=== PATIENT | female | born 1985 | race Caucasian/White ===

== ENCOUNTER 2017-05-08 07:17 | Emergency (ER) | payer BC, OTHER ==
[2017-05-08] MEDS ORDERED: XYLOCAINE 1% HCL 20 ML MDV IJ ONE (07:40)
[2017-05-08] MEDS ORDERED: BACIGUENT PACKET TP ONE (07:40)
--- NOTE | 2017-05-08 07:45 | ERPHSYRPT ---
- History of Present Illness Time Seen by Provider: 05/08/17 07:32 Source: patient Exam Limitations: no limitations Patient Subjective Stated Complaint: right perineal abscess, no drainage, swelling and tender to palpation Triage Nursing Assessment: redness, swelling to right perineal area, no obvious drainage on assessment Physician History: 32 year old white female arrives with complaint of possible abscess right groin for 1 week is on antibiotics placed by her fmd for 5 days , no fever no drainage has had area drained by Dr Sanchez in the past. Timing/Duration: today Severity: mild Associated Symptoms: No nausea, No vomiting, No abdominal pain, No shortness of breath, No heartburn, No diaphoresis, No cough, No chills, No chest pain, No fever, No headaches, No loss of appetite, No malaise, No rash, No syncope, No seizure, No weakness Allergies/Adverse Reactions: No Known Drug Allergies Allergy (Unverified 10/26/14 15:20) Home Medications: Clindamycin Phosphate [Clindamycin 1% Gel] 1 applic TOP BID PRN 05/08/17 [ History] Sulfamethoxazole/Trimethoprim [Bactrim Ds Tablet] 1 tab PO BID 05/08/17 [History ] Hx Tetanus, Diphtheria Vaccination/Date Given: Yes Hx Influenza Vaccination/Date Given: No Hx Pneumococcal Vaccination/Date Given: No Immunizations Up to Date: Yes - Review of Systems Constitutional: No Fever, No Chills Eyes: No Symptoms Ears, Nose, & Throat: No Symptoms Respiratory: No Cough, No Dyspnea Cardiac: No Chest Pain, No Edema, No Syncope Abdominal/Gastrointestinal: No Abdominal Pain, No Nausea, No Vomiting, No Diarrhea Genitourinary Symptoms: No Dysuria Musculoskeletal: No Back Pain, No Neck Pain Skin: Other (possible abscess right groin) Neurological: No Dizziness, No Focal Weakness, No Sensory Changes Psychological: No Symptoms Endocrine: No Symptoms Hematologic/Lymphatic: No Symptoms, Anemia, Blood Clots, Easy Bleeding, Gum Bleeding, Easy Bruising, Adenopathy, Other - Past Medical History Pertinent Past Medical History: No Neurological History: No Pertinent History ENT History: No Pertinent History Cardiac History: No Pertinent History Respiratory History: No Pertinent History Endocrine Medical History: No Pertinent History Musculoskeletal History: No Pertinent History GI Medical History: No Pertinent History History: No Pertinent History Psycho-Social History: No Pertinent History Female Reproductive Disorders: No Pertinent History Other Medical History: right areaola has scally rash with discharge - Past Surgical History Past Surgical History: Yes Neuro Surgical History: No Pertinent History Cardiac: No Pertinent History Respiratory: No Pertinent History Gastrointestinal: No Pertinent History Genitourinary: No Pertinent History Musculoskeletal: Orthopedic Surgery Female Surgical History: Section, Tubal Ligation Other Surgical History: R shoulder surgery, cyst removal to right perineal area - Social History Smoking Status: Current some day smoker How long have you smoked: 10 Exposure to second hand smoke: No Drug Use: none Patient Lives Alone: No - Female History Hx Last Menstrual Period: 05/01/2017 Hx Now: No - Nursing Vital Signs Nursing Vital Signs: Initial Vital Signs Temperature 98.0 F 05/08/17 07:23 Pulse Rate 82 05/08/17 07:23 Respiratory Rate 18 05/08/17 07:23 Blood Pressure 130/67 05/08/17 07:23 O2 Sat by Pulse Oximetry 100 05/08/17 07:23 Pain Scale Pain Intensity 8 - Physical Exam General Appearance: no apparent distress, alert Eye Exam: PERRL/EOMI, eyes nml inspection Ears, Nose, Throat Exam: normal ENT inspection, TMs normal, pharynx normal, moist mucous membranes Neck Exam: normal inspection, non-tender, supple, full range of motion Respiratory Exam: normal breath sounds, lungs clear, No respiratory distress Cardiovascular Exam: regular rate/rhythm, normal heart sounds, normal peripheral pulses Gastrointestinal/Abdomen Exam: soft Back Exam: normal inspection, normal range of motion, No CVA tenderness, No vertebral tenderness Extremity Exam: normal inspection, normal range of motion, pelvis stable Neurologic Exam: alert, oriented x 3, cooperative, normal mood/affect, nml cerebellar function, nml station & gait, sensation nml, No motor deficits Skin Exam: other (3x1 cm raised area right groin) SpO2 Interpretation: normal SpO2: 100 Oxygen Delivery: Room Air - Course Nursing assessment & vital signs reviewed: Yes Ordered Tests: Active Orders 24 hr Category Date Time Status Wound Care STAT Care 05/08/17 07:40 Active CULTURE,WOUND Stat Lab 05/08/17 07:39 Ordered Medication Summary Discontinued Medications Generic Name Dose Route Start Last Admin Trade Name Freq PRN Reason Stop Dose Admin Bacitracin 0.9 gm 05/08/17 07:40 05/08/17 07:57 Baciguent Packet TP 05/08/17 07:41 0.9 gm STAT ONE Administration Bacitracin Confirm 05/08/17 07:48 Baciguent Packet Administered 05/08/17 07:49 Dose 2 gm .ROUTE .STK-MED ONE Lidocaine HCl 5 ml 05/08/17 07:40 05/08/17 07:58 Xylocaine 1% Hcl 20 Ml Mdv IJ 05/08/17 07:41 10 ml STAT ONE Administration Lidocaine HCl Confirm 05/08/17 07:48 Xylocaine 1% Hcl 20 Ml Mdv Administered 05/08/17 07:49 Dose 10 ml .ROUTE .STK-MED ONE - Progress Progress: improved Progress Note: 05/08/17 08:38 I+D abscedd right thigh thigh consent obtained for aspiration and possible I+D abcess right thigh area sterily cleansed, area anesthetized with 1% lidocaine aabscess aspirated with return of serous fluid wound cultures obtained scalpel used to make 1.5 cm incision, area packed with iodoform gauze - Departure Time of Disposition: 08:42 Departure Disposition: Home Clinical Impression: Encounter for incision and drainage procedure, 3 cm abscess right thigh Condition: Fair Critical Care Time: No Additional Instructions: clean area and apply bacitracin daily packing out 2 days continue bactrim as prescribed by your family doctor. tylenol as needed for pain follow up with your family doctor Return for acute distress or problems
[2017-05-08] MEDS ORDERED: XYLOCAINE 1% HCL 20 ML MDV ONE (07:48)
[2017-05-08] MEDS ORDERED: BACIGUENT PACKET ONE (07:48)
[2017-05-08 08:46] VITALS: BP 125/67; PULSE 88; O2SAT 98
== END 2017-05-08 09:13 | disposition home or self-care (01) ==
LOC: ED 07:17
PROC: 0H9HXZZ Drainage of Right Upper Leg Skin, External Approach (ICD-10-PCS; principal; 2017-05-08)
DX: L02.415 Cutaneous abscess of right lower limb (principal)
CPT/HCPCS: 10060; 87070; 99283; A9270-GY

== ENCOUNTER 2020-07-08 06:15 | Day surgery (SDC) | payer OTHER ==
[2020-07-08] MEDS ORDERED: Lactated Ringers 1,000 ML IV SCH (07:00)
[2020-07-08] MEDS ORDERED: CEFAZOLIN 2 GM-D5W BAG** 2 GM/50 ML ML IV ONE (07:29)
[2020-07-08] MEDS ORDERED: Lactated Ringers 1,000 ML IV ONE (07:29)
[2020-07-08] MEDS ORDERED: CEFAZOLIN 2 GM-D5W BAG** 2 GM/50 ML ML IV SCH (07:30)
[2020-07-08] MEDS ORDERED: DIPRIVAN 200 MG/20 ML IV ONE (11:06)
[2020-07-08] MEDS ORDERED: SUBLIMAZE 100 MCG/2 ML ONE (11:06)
[2020-07-08] MEDS ORDERED: Versed 2 MG/2 ML Injection ONE (11:06)
[2020-07-08] MEDS ORDERED: TORAdol 30 mg Injection ONE (11:17)
[2020-07-08] MEDS ORDERED: BRIDION 200MG/2ML IV ONE (11:21)
[2020-07-08] MEDS ORDERED: Decadron 4 MG INJ ONE (11:48)
[2020-07-08] MEDS ORDERED: Zofran 4 MG/2 ML VIAL ONE (11:48)
[2020-07-08 13:28] VITALS: O2SAT 98
[2020-07-08 13:51] VITALS: BP 134/68; PULSE 61
--- NOTE | 2020-07-09 09:44 | OP ---
SURGERY DATE/TIME: 07/08/2020 1141 PREOPERATIVE DIAGNOSIS: Menorrhagia. POSTOPERATIVE DIAGNOSIS: Menorrhagia. PROCEDURE: Hysteroscopy D&C with NovaSure ablation. SURGEON: Mathew Land D.O. [employer] TECHNICIAN: donor technician. ANESTHESIA: General. ESTIMATED BLOOD LOSS: Minimal. COMPLICATIONS: None. INDICATIONS: The risks, benefits, indications and alternatives of the procedure were reviewed with the patient prior to the procedure. The patient understood the risk of infection, bleeding, bowel injury, bladder injury, ureteral injury, uterine perforation associated with the surgery as well as pelvic infection and desires to have this surgery as a possible means to alleviate her current medical condition. DESCRIPTION OF PROCEDURE AND FINDINGS: At this point the patient is taken to the operating room, given general sedation, placed in dorsal lithotomy position, prepped and draped in the usual sterile fashion. A weighted speculum is then placed in the patient's vagina and the anterior lip of the cervix is grasped with a single tooth tenaculum. Endocervical dilators were advanced through the endocervical canal as a means to dilate the cervix and the uterus was sounded to approximately 11 cm. From this point a 5 mm hysteroscope was then placed in through the endocervical canal where visualization revealed no gross abnormalities. From this point the hysteroscope was then removed and the curette was then placed into the fundus of the uterus and curettage was performed in all quadrants of the uterus retrieving a mild to moderate amount of tissue. Hemostasis was obtained at this point. From this point the NovaSure was then introduced where the instrument was then placed in through the endocervical region where it was engaged in place with a length of 6.5 cm and a width of 4.3 cm. The machine was turned for 51 seconds and ablative time was recorded. After completion of the ablation the NovaSure was then disengaged and then removed from the uterine cavity. From this point all instruments were subsequently removed from the vaginal region. The patient was then taken out of the dorsal lithotomy position and was taken out of anesthesia and was then taken to the recovery room in stable condition. All instruments and laps were accounted for x2.
== END 2020-07-08 13:25 | disposition home or self-care (01) ==
LOC: SDC 06:15
PROVIDERS: ATTEND Obstetrics & Gynecology
DX: N92.0 Excessive and frequent menstruation with regular cycle (principal)
CPT/HCPCS: 84703; J0690; J1100; J1885; J2250; J2405; J2704; J3010

== ENCOUNTER 2023-12-13 06:35 | Observation (INO) | payer OTHER ==
[2023-12-13] MEDS ORDERED: Lactated Ringers 1,000 ML IV ONE ×3 (07:04→12:43)
[2023-12-13 07:10] LABS: HCG URINE TEST NEGATIVE (NEGATIVE)
[2023-12-13] MEDS: Lactated Ringers 1,000 ML IV SCH ×2 (07:12→20:51)
[2023-12-13] MEDS: CEFAZOLIN 2 GM/100 ML NaCl 2 GM/100 ML IVPB IV SCH ×2 (07:12→14:14)
[2023-12-13 07:19] LABS: Hematocrit 39.6 % (34.1-44.9); Hemoglobin 13.2 g/dL (11.2-15.7); Mean Cell Volume 91.5 fL (79.4-94.8); Mean Corpuscular Hemoglobin 30.5 pg (25.6-32.2); Mean Corpuscular Hgb Concent. 33.3 g/dL (32.2-35.5); Mean Platelet Volume 11.4 fL (9.4-12.3); Platelet Count 208 x10^3/uL (182-369); Red Blood Count 4.33 x10^6/uL (3.93-5.22); Red Cell Distribution Width 12.3 % (11.7-14.4); White Blood Count 5.2 x10^3/uL (3.98-10.04)
[2023-12-13] MEDS ORDERED: CEFAZOLIN 2 GM/100 ML NaCl 2 GM/100 ML IVPB IV ONE (07:30)
[2023-12-13 07:32] LABS: ALBUMIN 4.2 g/dL (3.5-5.0); ANION GAP 12.5 MEQ/L (5-15); BILIRUBIN,TOTAL 0.7 mg/dL (0.2-1.3); Calcium 8.9 mg/dL (8.4-10.2); Creatinine 1 0.49 mg/dL (0.52-1.04); EST GLOMERULAR FILTRATION RATE 122.9 ML/MIN; Potassium 3.6 mmol/L (3.5-5.1); Total Protein 6.8 g/dL (6.3-8.2)
[2023-12-13 08:27] LABS: ABO TYPING O; Antibody Screen NEGATIVE (NEGATIVE); RH TYPING NEGATIVE
[2023-12-13] MEDS ORDERED: TORAdol 30 mg Injection ONE (08:31)
[2023-12-13] MEDS ORDERED: Zofran 4 MG/2 ML VIAL ONE ×2 (08:31→12:07)
[2023-12-13] MEDS ORDERED: ROCURONIUM BROMIDE IV ONE (08:31)
[2023-12-13] MEDS ORDERED: Decadron 4 MG INJ ONE (08:31)
[2023-12-13] MEDS ORDERED: DIPRIVAN 200 MG/20 ML IV ONE (08:31)
[2023-12-13] MEDS ORDERED: Xylocaine-Mpf 2% 5 Ml Vial ONE (08:31)
[2023-12-13] MEDS ORDERED: BRIDION 200MG/2ML IV ONE (08:31)
[2023-12-13] MEDS ORDERED: SUBLIMAZE 100 MCG/2 ML ONE (08:32)
[2023-12-13] MEDS ORDERED: Astramorph-Pf 5 MG/10 ML ONE (08:32)
[2023-12-13] MEDS ORDERED: Versed 2 MG/2 ML Injection ONE (08:33)
[2023-12-13] MEDS ORDERED: Sensorcaine 0.25% 10 ML ONE (08:43)
[2023-12-13] MEDS ORDERED: PHENYLEPHRINE HCL ONE (09:00)
[2023-12-13] MEDS ORDERED: Magnesium Sulfate 1 GM/2 ML VIAL ONE (09:02)
[2023-12-13] MEDS ORDERED: OFIRMEV 100 ML IV ONE (09:02)
[2023-12-13] MEDS ORDERED: Ketamine HCl 50 MG/ML ONE (09:09)
[2023-12-13] MEDS ORDERED: Marcaine 0.5%/Epinephrine 10 ML ONE (09:56)
[2023-12-13] MEDS ORDERED: Phenergan 25 MG INJ ONE (12:19)
[2023-12-13] MEDS ORDERED: Compazine 10 MG/2 ML ONE (12:37)
[2023-12-13] MEDS ORDERED: MORPHINE SULFATE 2 MG INJ IV PRN (14:00)
[2023-12-13] MEDS ORDERED: Narcan 0.4 MG/ML IV PRN (14:00)
[2023-12-13] MEDS ORDERED: Zofran 4 MG/2 ML VIAL IV PRN ×2 (14:00→14:02)
[2023-12-13] MEDS ORDERED: Sodium Chloride 0.9% 10 ML FLUSH Syringe IJ PRN (14:00)
[2023-12-13] MEDS ORDERED: BENADRYL 50 MG/ML IV PRN (14:00)
[2023-12-13] MEDS ORDERED: DEMEROL 50 MG IV PRN (14:00)
[2023-12-13] MEDS ORDERED: Nubain 10 MG/ML IV PRN (14:00)
[2023-12-13] MEDS ORDERED: CLARITIN 10 MG PO PRN (14:00)
[2023-12-13] MEDS ORDERED: TORAdol 30 mg Injection IV PRN (14:04)
[2023-12-13] MEDS: Mylicon 80MG PO SCH (15:58)
[2023-12-13] MEDS: Reglan 10 MG/2 ML IV SCH (15:58)
[2023-12-13 18:04] LABS: Hematocrit 36.7 % (34.1-44.9); Hemoglobin 12.2 g/dL (11.2-15.7); Mean Cell Volume 93.1 fL (79.4-94.8); Mean Corpuscular Hgb Concent. 33.2 g/dL (32.2-35.5); Mean Platelet Volume 11.3 fL (9.4-12.3); Platelet Count 212 x10^3/uL (182-369); Red Blood Count 3.94 x10^6/uL (3.93-5.22); Red Cell Distribution Width 12.4 % (11.7-14.4); White Blood Count 10.4 x10^3/uL (3.98-10.04)
[2023-12-13] MEDS: Docusate Sodium 100 MG PO SCH (22:11)
[2023-12-13] MEDS: Lactated Ringers 1,000 ML IV ONE (23:38)
[2023-12-14 04:52] LABS: Hemoglobin 10.5 g/dL (11.2-15.7); Mean Cell Volume 93.3 fL (79.4-94.8); Mean Corpuscular Hemoglobin 30.6 pg (25.6-32.2); Mean Corpuscular Hgb Concent. 32.8 g/dL (32.2-35.5); Mean Platelet Volume 11.5 fL (9.4-12.3); Platelet Count 224 x10^3/uL (182-369); Red Blood Count 3.43 x10^6/uL (3.93-5.22); Red Cell Distribution Width 12.6 % (11.7-14.4); White Blood Count 10.3 x10^3/uL (3.98-10.04)
[2023-12-14 05:08] LABS: ANION GAP 7.6 MEQ/L (5-15); BILIRUBIN,TOTAL 0.5 mg/dL (0.2-1.3); Calcium 8.3 mg/dL (8.4-10.2); Creatinine 1 0.51 mg/dL (0.52-1.04); EST GLOMERULAR FILTRATION RATE 121.7 ML/MIN; Potassium 3.5 mmol/L (3.5-5.1); Total Protein 5.3 g/dL (6.3-8.2)
[2023-12-14 05:21] VITALS: PULSE 68
[2023-12-14 07:59] VITALS: BP 103/57; RESP 15; TEMP 97.5; O2SAT 96
[2023-12-14] MEDS: ENOXAPARIN SODIUM SQ SCH (08:06)
--- NOTE | 2023-12-14 08:07 | PCM.NOTE ---
Date and Time: 12/14/23804 Subjective Assessment: pod 1 pt resting in bed and doing well able to ambulate and tolerate diet. vss afebrile abd; soft incisions c/d/intact nondistended ext; no clubbing cyanosis or edema a/p sp laparoscopic supracervical hysterectomy b/l salpingectomy secondary to chronic pelvic pain failed ablation pt stable for discharge dc home today declines pain medication upon discharge should fu in office in 2 wks Objective Data Vital Signs: Vital Signs - 24 hr Temp Pulse Resp BP Pulse Ox 12/14/23 07:59 97.5 F 68 15 103/57 96 12/14/23 04:00 98.0 F 68 16 84/49 95 12/13/23 23:34 98.0 F 72 16 85/50 97 12/13/23 22:00 97.8 F 70 16 80/48 98 12/13/23 18:43 99 12/13/23 14:45 69 15 107/60 97 12/13/23 14:15 97.6 F 64 14 85/53 93 L 12/13/23 13:57 64 18 93 L 12/13/23 13:45 97.6 F 64 14 85/52 92 L 12/13/23 13:30 97.6 F 62 14 85/51 93 L 12/13/23 13:22 96 12/13/23 13:15 97.6 F 65 15 79/51 92 L 12/13/23 13:00 97.6 F 63 14 82/52 91 L Intake and Output: Intake & Output 12/11/23 12/12/23 12/13/23 12/14/23 11:59 11:59 11:59 11:59 Intake Total 1236 Output Total 1600 Balance -364 Weight 59.8 kg 59.8 kg Lab Results: Lab Results-Last 24 Hours 12/13/23 12/13/23 12/14/23 Range/Units 07:09 18:00 04:40 WBC 10.4 H 10.3 H (3.98-10.04) x10^3/uL RBC 3.94 3.43 L (3.93-5.22) x10^6/uL Hgb 12.2 10.5 L (11.2-15.7) g/dL Hct 36.7 32.0 L (34.1-44.9) % MCV 93.1 93.3 (79.4-94.8) fL MCH 31.0 30.6 (25.6-32.2) pg MCHC 33.2 32.8 (32.2-35.5) g/dL RDW 12.4 12.6 (11.7-14.4) % Plt Count 212 224 (182-369) x10^3/uL MPV 11.3 11.5 (9.4-12.3) fL Sodium (135-145) mmol/L Potassium (3.5-5.1) mmol/L Chloride (98-107) mmol/L Carbon Dioxide (22-30) mmol/L Anion Gap (5-15) MEQ/L BUN (7-17) mg/dL Creatinine (0.52-1.04) mg/dL Estimated GFR ML/MIN Glucose (74-106) mg/dL Calcium (8.4-10.2) mg/dL Total Bilirubin (0.2-1.3) mg/dL AST (14-36) U/L ALT (0-35) U/L Alkaline Phosphatase (38-126) U/L Serum Total Protein (6.3-8.2) g/dL Albumin (3.5-5.0) g/dL ABO Group O Rh Factor NEGATIVE Antibody Screen NEGATIVE (NEGATIVE) 12/14/23 Range/Units 04:40 WBC (3.98-10.04) x10^3/uL RBC (3.93-5.22) x10^6/uL Hgb (11.2-15.7) g/dL Hct (34.1-44.9) % MCV (79.4-94.8) fL MCH (25.6-32.2) pg MCHC (32.2-35.5) g/dL RDW (11.7-14.4) % Plt Count (182-369) x10^3/uL MPV (9.4-12.3) fL Sodium 136 (135-145) mmol/L Potassium 3.5 (3.5-5.1) mmol/L Chloride 108 H (98-107) mmol/L Carbon Dioxide 24 (22-30) mmol/L Anion Gap 7.6 (5-15) MEQ/L BUN 5 L (7-17) mg/dL Creatinine 0.51 L (0.52-1.04) mg/dL Estimated GFR 121.7 ML/MIN Glucose 89 (74-106) mg/dL Calcium 8.3 L (8.4-10.2) mg/dL Total Bilirubin 0.50 (0.2-1.3) mg/dL AST 24 (14-36) U/L ALT 14 (0-35) U/L Alkaline Phosphatase 30 L (38-126) U/L Serum Total Protein 5.3 L (6.3-8.2) g/dL Albumin 3.0 L (3.5-5.0) g/dL ABO Group Rh Factor Antibody Screen (NEGATIVE) Multi-Disciplinary Progress Notes: Multi-Disciplinary Progress Notes 12/13/23 14:07 Respiratory Note by Denise Mcdaniels PT SLEEPING SOUNDLY. WILL START INCENTIVE SPIROMETRY ONCE PT WAKES. Initialized on 12/13/23 14:07 - END OF NOTE Assessment/Plan (1) Status post laparoscopic supracervical hysterectomy Current Visit: Yes Status: Acute Code(s): Z90.711 - ACQUIRED ABSENCE OF UTERUS WITH REMAINING CERVICAL STUMP (2) Chronic pelvic pain in female Current Visit: Yes Status: Acute
--- NOTE | 2023-12-14 08:11 | PCM.DS ---
Discharge Summary Date of Admission: 12/13/23 06:35 Admitting Physician: ANTHONY MORAN DO Primary Care Provider: DAYDAY WARREN Allergies Allergies No Known Drug Allergies Allergy (Verified 12/13/23 06:48) Hospital Summary - Hospital Course Hospital Course: pt admitted on december 12 for undergoing laparoscopic supracervical hysterectomy b/l salpingectomy secondary to chronic pelvic pain, failed ablation and underwent procedure without complication. during postop period pt was able to ambulate and tolerate diet and vitals were normal. labs showing hgb to being stable at 10.5 and incisions were clean, dry, and intact. pt declines pain medication upon discharge at this time and states will take ibuprofen and tylenol for pain management. pt stable for discharge and was advised to call me for any issues that may arise and was advised to fu in office in 2 wks for postop check. all questions were answered to her satisfaction. - Vitals & Intake/Output Vital Signs: Vital Signs Temperature 97.5 F 12/14/23 07:59 Pulse Rate 68 12/14/23 07:59 Respiratory Rate 15 12/14/23 07:59 Blood Pressure 103/57 12/14/23 07:59 O2 Sat by Pulse Oximetry 96 12/14/23 07:59 Intake & Output: Intake & Output 12/11/23 12/12/23 12/13/23 12/14/23 11:59 11:59 11:59 11:59 Intake Total 1236 Output Total 1600 Balance -364 Weight 59.8 kg 59.8 kg - Lab Result Diagrams: 12/14/23 04:40 12/14/23 04:40 Lab Results-Last 24 Hrs: Lab Results-Last 24 Hours 12/13/23 12/13/23 12/14/23 Range/Units 07:09 18:00 04:40 WBC 10.4 H 10.3 H (3.98-10.04) x10^3/uL RBC 3.94 3.43 L (3.93-5.22) x10^6/uL Hgb 12.2 10.5 L (11.2-15.7) g/dL Hct 36.7 32.0 L (34.1-44.9) % MCV 93.1 93.3 (79.4-94.8) fL MCH 31.0 30.6 (25.6-32.2) pg MCHC 33.2 32.8 (32.2-35.5) g/dL RDW 12.4 12.6 (11.7-14.4) % Plt Count 212 224 (182-369) x10^3/uL MPV 11.3 11.5 (9.4-12.3) fL Sodium (135-145) mmol/L Potassium (3.5-5.1) mmol/L Chloride (98-107) mmol/L Carbon Dioxide (22-30) mmol/L Anion Gap (5-15) MEQ/L BUN (7-17) mg/dL Creatinine (0.52-1.04) mg/dL Estimated GFR ML/MIN Glucose (74-106) mg/dL Calcium (8.4-10.2) mg/dL Total Bilirubin (0.2-1.3) mg/dL AST (14-36) U/L ALT (0-35) U/L Alkaline Phosphatase (38-126) U/L Serum Total Protein (6.3-8.2) g/dL Albumin (3.5-5.0) g/dL ABO Group O Rh Factor NEGATIVE Antibody Screen NEGATIVE (NEGATIVE) 12/14/23 Range/Units 04:40 WBC (3.98-10.04) x10^3/uL RBC (3.93-5.22) x10^6/uL Hgb (11.2-15.7) g/dL Hct (34.1-44.9) % MCV (79.4-94.8) fL MCH (25.6-32.2) pg MCHC (32.2-35.5) g/dL RDW (11.7-14.4) % Plt Count (182-369) x10^3/uL MPV (9.4-12.3) fL Sodium 136 (135-145) mmol/L Potassium 3.5 (3.5-5.1) mmol/L Chloride 108 H (98-107) mmol/L Carbon Dioxide 24 (22-30) mmol/L Anion Gap 7.6 (5-15) MEQ/L BUN 5 L (7-17) mg/dL Creatinine 0.51 L (0.52-1.04) mg/dL Estimated GFR 121.7 ML/MIN Glucose 89 (74-106) mg/dL Calcium 8.3 L (8.4-10.2) mg/dL Total Bilirubin 0.50 (0.2-1.3) mg/dL AST 24 (14-36) U/L ALT 14 (0-35) U/L Alkaline Phosphatase 30 L (38-126) U/L Serum Total Protein 5.3 L (6.3-8.2) g/dL Albumin 3.0 L (3.5-5.0) g/dL ABO Group Rh Factor Antibody Screen (NEGATIVE) - Procedures and Test Procedures and Tests throughout Hospitalization: Therapy Orders & Screens 12/13/23 13:22 Incentive Spirometry UD Comment: Diagnosis: pelvic pain 12/13/23 13:52 Oxygen Nasal Cannula 2 lpm Comment: to keep sats >93% Diagnosis: pelvic pain Final Diagnosis/Problem List - Final Discharge Diagnosis/Problem (1) Status post laparoscopic supracervical hysterectomy Current Visit: Yes Status: Acute Code(s): Z90.711 - ACQUIRED ABSENCE OF UTERUS WITH REMAINING CERVICAL STUMP (2) Chronic pelvic pain in female Current Visit: Yes Status: Acute - Discharge Disposition: Home, Self-Care Condition: Stable Prescriptions: No Action No Reportable Medications [No Reported Medications] Follow up with: DAYDAY WARREN NP [Primary Care Provider] - ANTHONY MORAN DO [ACTIVE STAFF] - 2 weeks (should fu in office in 2 wks no driving for a week no intercourse for 6 wks no heavy lifting should call me for any issues that may arise)
[2023-12-14] MEDS: ZOFRAN ODT 4 MG PO PRN (09:36)
[2023-12-14] MEDS: PERCOCET TABLET 5/325MG PO PRN (09:37)
[2023-12-14] MEDS ORDERED: HOLD NARCOTIC ANALGESICS AND SEDATIVES X24 HR MC SCH (10:00)
--- NOTE | 2023-12-15 09:55 | OP ---
SURGERY DATE/TIME: 12/13/2023 9853 - 6816 PREOPERATIVE DIAGNOSIS: Chronic pelvic pain, failed ablation. POSTOPERATIVE DIAGNOSIS: Chronic pelvic pain, failed ablation. PROCEDURE: Laparoscopic supracervical hysterectomy, bilateral salpingectomy. SURGEON: John Land MD [employer] [place] [employer]: [place]. ANESTHESIA: General. ESTIMATED BLOOD LOSS: Minimal. COMPLICATIONS: None. DESCRIPTION OF PROCEDURE AND FINDINGS: The risks, benefits, indications, and alternatives of the procedure were reviewed with the patient prior to the procedure. The patient understood the risks of infection, bleeding, bowel injury, bladder injury, ureteral injury, pelvic infection, thromboembolic disorder associated with the surgery and desired to have this surgery as a possible means to alleviate her current medical condition. At this point, patient was taken to the operating room and given general sedation, placed in a supine position where she was prepped and draped in the usual sterile fashion. A 5 mm skin incision was made in the umbilical fold and a 5 mm trochar and sleeve were advanced under direct visualization, while pneumoperitoneum was obtained by 4 L of CO2 gas. An additional incision was made in the left middle quadrant region where a 5 mm incision was made and a 5 mm trochar and sleeve were advanced under direct visualization. An additional incision was made of the right middle quadrant region where a 5 mm incision was made and a 5 mm trochar and sleeve were advanced under direct visualization. An additional incision was made 2 cm above the symphysis pubis where a 10 mm incision was made, 10 mm trochar and sleeve were advanced under direct visualization. From this point, the patient was placed in the Trendelenburg position. The uterus was noted to have approximately 10-week size. The uterus was elevated and a ligature was placed into the trochar site where it was placed over the left utero-ovarian ligament where it was clamped, coagulated, and cut, taken down to the round ligament toward the uterine vasculature on the left side where it was skeletonized and the uterine vessels were identified, were clamped at 3 contiguous regions, coagulated, and cut and a bladder flap developed on its side. The same procedure was performed on the right side where the right utero-ovarian ligament was clamped, coagulated, cut, taken down through the round ligament where it too was clamped, coagulated, but, and taken down toward the right uterine vasculature where it was skeletonized and was clamped, coagulated, and cut into 3 contiguous regions, and the vesicouterine flap was developed on its side as well. From this point, complete hemostasis was noted. The fallopian tubes bilaterally were excised using a ligature along the mesosalpinx and was done so without complication. The ovaries appeared to be within normal limits and were not removed during the procedure. From this point, the uterus was elevated and the Superloop was then used and was placed over the juncture between the uterus and the cervix where the Superloop was noted to be in proper position and, at this point was used to amputate the uterus from its cervical stump and it was done so using approximately 70 W on the instrument. After a complete amputation, there was no bleeding that was noted from the cervical stump region. The uterus was then placed in the Endobag where it was brought out at the 10 mm site and morcellation was taking place removing the uterus and the remaining contents with the Endobag catch. The incision had been extended at the 10 mm site. It was closed with 0 Vicryl suture along with 3-0 Vicryl suture for the subcutaneous layer and the Insorb was placed on the skin surface. Upon looking after removal of the uterus into the pelvic region, irrigation was taking place. There was no bleeding that was noted. From this point, all instruments removed from the patient's abdominal regions and the remaining incisions were closed with 4-0 Monocryl suture with subsequent Dermabond. The patient was subsequently taken out of anesthesia and was then taken to the recovery room in stable condition. All instruments and laps were accounted for x2.
== END 2023-12-14 09:55 | disposition home or self-care (01) ==
LOC: MED SURG 06:35 → EDSTATUS 13:03
PROVIDERS: ADMIT Obstetrics & Gynecology; ATTEND Obstetrics & Gynecology
DX: R10.2 Pelvic and perineal pain (principal)
CPT/HCPCS: 36415; 80053; 81025; 85027; 86850; 86900; 86901; 87086; 94762; G0378; J0690; J1100; J1650; J1885; J2250; J2274; J2371; J2405; J2550; J2704; J3010; J3475; Q0162; A9270-GY